=== PATIENT | male | born 1980 | race Caucasian/White ===

== ENCOUNTER 2019-01-14 11:24 | Emergency (ER) | payer BC ==
[2019-01-14 11:32] VITALS: BP 153/92
[2019-01-14] MEDS ORDERED: Diphtheria,Pertussis(Acell),Tetanus Vaccine 0.5 ML Syringe IM ONE (12:09)
--- NOTE | 2019-01-14 12:12 | EDM.PDOC ---
ED HPI GENERAL MEDICAL PROBLEM - General Chief Complaint: Laceration Stated Complaint: LEG LAC Time Seen by Provider: 01/14/19 11:45 Source of Information: Reports: Patient, RN Notes Reviewed History Limitations: Reports: No Limitations - History of Present Illness INITIAL COMMENTS - FREE TEXT/NARRATIVE: Patient is a 39-year-old male presents to the ED for evaluation of a right lower leg laceration. The patient states that he dropped a shot glass last night and part of the class shards came up and caught his right valdez aspect. There is a 2.5 cm L-shaped laceration appreciated to his leg, the bleeding is controlled at this time. The patient states he is unsure of his tetanus status. He denies any numbness or tingling to his right lower extremity. He notes that his laceration happened just about 12 hours ago. - Related Data Allergies Allergy/AdvReac Type Severity Reaction Status Date / Time No Known Allergies Allergy Verified 01/14/19 11:29 Home Meds: Home Meds Omeprazole 20 mg PO DAILY 04/08/18 [History] Past Medical History - Past Health History Medical/Surgical History: Denies Medical/Surgical History Gastrointestinal History: Reports: GERD Genitourinary History: Reports: Renal Calculus Musculoskeletal History: Reports: Other (See Below) Endocrine/Metabolic History: Reports: Obesity/BMI 30+ - Past Surgical History HEENT Surgical History: Reports: Oral Surgery Musculoskeletal Surgical History: Reports: Arthroscopic Knee Social & Family History - Tobacco Use Smoking Status *Q: Never Smoker - Caffeine Use Caffeine Use: Reports: Soda - Recreational Drug Use Recreational Drug Use: No - Living Situation & Occupation Living situation: Reports: (), Alone Occupation: Employed ([employer]) ED ROS GENERAL - Review of Systems Review Of Systems: See Below Constitutional: Reports: No Symptoms HEENT: Reports: No Symptoms Respiratory: Reports: No Symptoms Cardiovascular: Reports: No Symptoms Endocrine: Reports: No Symptoms GI/Abdominal: Reports: No Symptoms : Reports: No Symptoms Musculoskeletal: Reports: No Symptoms Skin: Reports: Wound (2.5cm L shaped superficial laceration to R mid valdez aspect ) Neurological: Reports: No Symptoms Psychiatric: Reports: No Symptoms Hematologic/Lymphatic: Reports: No Symptoms ED EXAM, SKIN/RASH Exam: See Below Exam Limited By: No Limitations General Appearance: Alert, WD/WN, No Apparent Distress Respiratory/Chest: No Respiratory Distress, Lungs Clear, Normal Breath Sounds, No Accessory Muscle Use, Chest Non-Tender Cardiovascular: Normal Peripheral Pulses, Regular Rate, Rhythm, No Murmur Extremities: Normal Inspection, Normal Range of Motion, Non-Tender, Normal Capillary Refill Neurological: Alert, Oriented, Normal Cognition, No Motor/Sensory Deficits Psychiatric: Normal Affect, Normal Mood Skin: Warm, Dry, Normal Color, No Rash, Wound/Incision (2.5cm L shaped superficial laceration to R mid valdez aspect) ED SKIN PROCEDURES - Laceration/Wound Repair Right Lower Anterior Midline Leg Lac/Wound length In cm: 2.5 Appearance: Superficial, Irregular (l-shaped) Distal NVT: Neuro & Vascular Intact, No Tendon Injury Skin Prep: Chlorhexidine (Hibiciens) Exploration/Debridement/Repair: Wound Explored, In a Bloodless Field, Explored to Base, Multiple Flaps Aligned (1 flap aligned) Closed with: Dermabond Sterile Dressing Applied: Nurse Tetanus Status Addressed: Yes Complications: No Progress/Comments: Patient is unsure of timing of wound, have closed this with dermabond, it is not deep enough to suture at this time. Course - Vital Signs Last Recorded V/S: Last Vital Signs Temp 97.3 F 01/14/19 11:29 Pulse 72 01/14/19 11:29 Resp 16 01/14/19 11:29 BP 153/92 H 01/14/19 11:29 Pulse Ox 96 01/14/19 11:29 - Re-Assessments/Exams Free Text/Narrative Re-Assessment/Exam: 01/14/19 12:13 Patient presents to the ED for evaluation of a leg laceration. Due to the unknown timing of the leg laceration and being roughly just about 12 hours. I did Dermabond the wound, have educated the patient on signs and symptoms of infection. He is understanding of this. Departure - Departure Time of Disposition: 12:13 Disposition: Home, Self-Care 01 Condition: Fair Clinical Impression: Laceration of leg Qualifiers: Encounter type: initial encounter Laterality: right Qualified Code(s): S81.811A - Laceration without foreign body, right lower leg, initial encounter - Discharge Information *PRESCRIPTION DRUG MONITORING PROGRAM REVIEWED*: No *COPY OF PRESCRIPTION DRUG MONITORING REPORT IN PATIENT WHITLEY: No Instructions: Stitches, [place], or Adhesive Wound Closure, [id number] Referrals: Rafael Christian MD [Primary Care Provider] - Additional Instructions: You have been evaluated in the ED for your laceration. The wound was repaired with Dermabond. This will gradually fall off as time goes on. This is meant to provide a protective barrier to the wound. as it was roughly 12 hours after accident occurred. Please keep this area clean and dry, you may cleanse with regular soap and water. No vigorous scrubbing. Please watch for signs/symptoms of infection, (redness, increased swelling/pain) . This would be cause for concern to seek further care of the wound. Please return to ED if your symptoms change or worsen.
== END 2019-01-14 12:30 | disposition home or self-care (01) ==
LOC: JD.ED 11:24
DX: S81.811A Laceration without foreign body, right lower leg, initial encounter (principal); Z23 Encounter for immunization; K21.9 Gastro-esophageal reflux disease without esophagitis; Z79.899 Other long term (current) drug therapy; W20.8XXA Other cause of strike by thrown, projected or falling object, initial encounter
CPT/HCPCS: 12001; 90471; 90700; 99282

== ENCOUNTER 2021-12-16 05:24 | Emergency (ER) | payer BC ==
[2021-12-16 05:37] VITALS: BP 160/92; PULSE 68
[2021-12-16] MEDS ORDERED: Orphenadrine 100 MG Tab.ER PO STA (05:57)
== END 2021-12-16 06:15 | disposition home or self-care (01) ==
LOC: JD.ED 05:24
DX: M54.12 Radiculopathy, cervical region (principal); K21.9 Gastro-esophageal reflux disease without esophagitis; F17.210 Nicotine dependence, cigarettes, uncomplicated; Z79.899 Other long term (current) drug therapy; Z86.16 Personal history of COVID-19
CPT/HCPCS: 99283; A9270